=== PATIENT | female | born 1975 | race Caucasian/White ===

== ENCOUNTER 2017-03-29 05:24 | Day surgery (SDC) | payer BC ==
[2017-03-23 11:19] VITALS: BMI 20.1
[2017-03-29] MEDS ORDERED: ONDANSETRON 4 MG/2 ML VIAL ONE (10:42)
[2017-03-29] MEDS ORDERED: ceFAZolin SODIUM 1 GM VIAL ONE (10:42)
[2017-03-29] MEDS ORDERED: LIDOCAINE HCL/PF 2% SDV 5ML VIAL ONE (10:42)
[2017-03-29] MEDS ORDERED: KETOROLAC TROMETHAMINE 30 MG/1 ML VIAL ONE (10:42)
[2017-03-29] MEDS ORDERED: DEXAMETHASONE SOD PHOSPHATE 4 MG/1 ML VIAL ONE (10:42)
[2017-03-29] MEDS ORDERED: MIDAZOLAM HCL 2 MG/2 ML SINGLE DOSE VIAL ONE (10:43)
--- NOTE | 2017-03-29 11:42 | HP ---
History & Physical Update - History History: No Change - Physical Physical: No Change - Assessment Assessment: No Change - Plan Plan: No Change (Consented for Hysteroscopy, Myomectomy, possible polypectomy, Endometrial ablation)
[2017-03-29] MEDS ORDERED: ceFAZolin SODIUM 1 GM VIAL IVPB ONE (13:33)
[2017-03-29] MEDS ORDERED: oxyCODONE HCL 5 MG TABLET PO PRN ×3 (14:56→15:23)
[2017-03-29] MEDS ORDERED: ONDANSETRON 4 MG/2 ML VIAL IVPUSH PRN (14:56)
[2017-03-29] MEDS ORDERED: LACTATED RINGERS SOLUTION 1,000 ML IV SCH (15:00)
[2017-03-29] MEDS ORDERED: ONDANSETRON 4 MG/2 ML VIAL IVPB PRN (15:23)
[2017-03-29] MEDS ORDERED: IBUPROFEN 600 MG TABLET (FP) PO PRN (15:23)
[2017-03-29] MEDS ORDERED: IBUPROFEN 800 MG/8 ML IJ IVPB PRN (15:23)
--- NOTE | 2017-03-29 15:23 | OP ---
Operative Note - Note: Operative Date: 03/29/17 Pre-Operative Diagnosis: 42 yo P1 with menorhagia, likely submucosal fibroid on US Operation: Hysteroscopy, Myomectomy, Polypectomy, Endometrial ablation Findings: 1. 7cm retroverted uterus with likely fundal fibroid 2. 2cm fundal, submucosal fibroid 3. Low uterine segment polyp Post-Operative Diagnosis: Same as Pre-op Surgeon: Ellen Falk Anesthesiologist/STEAM FITTER: Po Hong Anesthesia: MAC Specimens Removed: 1. Fibroid. 2. Polyp. 3. Endometrial curettings Estimated Blood Loss (mls): 0 Instrument used (Debridements only): 1. TruClear System 5mm with Ultra mini resecting device; 2.HTA Genesys Drains & Tubes with Location: Fluid defficit - 640cc Drains, Volume Out (mls): 100 Fluid Volume Replaced (mls): 1,000 Operative Report Dictated: Yes
[2017-03-29] MEDS ORDERED: ELECTROLYTE-148 SOLN 1,000 ML IV SCH (15:30)
[2017-03-29 16:25] VITALS: TEMP 98.2
[2017-03-29 16:29] VITALS: BP 124/80; PULSE 64
--- NOTE | 2017-03-31 08:19 | OP ---
DATE OF OPERATION: 03/29/2017 PREOPERATIVE DIAGNOSIS: A 42-year-old para 1 with menorrhagia, likely submucosal fibroid on ultrasound. POSTOPERATIVE DIAGNOSIS: A 42-year-old para 1 with menorrhagia and submucosal fibroid and low uterine segment polyp. OPERATION: Hysteroscopy, myomectomy, polypectomy, endometrial ablation. FINDINGS: A 7-cm retroverted uterus with likely fundal subserosal fibroid, 2-cm fundal submucosal fibroid, low uterine segment polyp. SURGEON: Ellen Falk MD ANESTHESIOLOGIST: Po Hong CRNA ANESTHESIA: MAC. SPECIMENS REMOVED: Fibroid, polyp, endometrial curettings. DESCRIPTION OF THE OPERATIVE PROCEDURE: After assuring informed consent and explaining all risks, benefits, and alternatives to the patient, patient was brought to operating room where she was placed in dorsal lithotomy position. Perineum was prepped and draped in sterile fashion. After the Truclear hysteroscope was assembled and primed, the Melgar speculum was placed in the vagina, and anterior cervical lip was articulated with single-tooth tenaculum. The cervix was dilated up to gauge 17 to accommodate 5-mm hysteroscope. Hysteroscope was introduced and intrauterine contents were surveyed. Bilateral ostia were visualized, and midline stage 1 submucosal fibroid approximately 2 cm in size was identified and resected using the ultra mini resectoscope that was introduced through the 5-mm hysteroscope. The fibroid was level with endometrium. Subsequently, ultra mini was also used to resect the lower uterine segment polyp. The Truclear hysteroscope was removed and Storz hysteroscope with Genesys HTA ablation device was introduced into the uterus. The excellent cervical seal was assured and 10-minute cycle was fully completed, with good visualization of intrauterine contents. The darkening of endometrial tissue was noted. Cooling cycle completed and Genesys system was removed from the uterus, and Truclear hysteroscope was reintroduced. The floating debris with some polypoid tissue was removed, and uterus was cleared of excess endometrial tissue. Subsequently all instruments were removed from the vagina. Excellent hemostasis was noted. Instrument and sponge count was correct x2. Fluid deficit noted was to be 640 mL. Patient put out 100 mL of urine and received 1000 mL of IV fluids. She was stable and was brought to the recovery room in stable condition. Bernice [id number]
--- NOTE | 2017-03-31 13:01 | PATH ---
Surgical Pathology Report Patient Name: JUAN FRANCISCO MELTON [facility]. Rec. #: [id number] /Age/Gender: 1975 (Age: 42) / F Account: [id number] Location: [facility] SURGICAL Taken: 03/29/2017 Received: 03/30/2017 Reported: 03/31/2017 Physicians: Ellen Falk M.D. Specimen(s) Received FIBROID, POLYP AND ENDOMETRIAL CURETTINGS Clinical History Vaginal bleeding, submucosal leiomyoma of uterus Final Diagnosis FIBROID, POLYP, AND ENDOMETRIAL CURETTAGE: FRAGMENTS OF PREDOMINANTLY INACTIVE AND FOCALLY SECRETORY TYPE ENDOMETRIUM WITH AREAS SUGGESTIVE OF ENDOMETRIAL POLYP. FRAGMENTS OF BENIGN SMOOTH MUSCLE WITH OVERLYING BENIGN ENDOMETRIUM SUGGESTIVE OF SUBMUCOSAL LEIOMYOMA. Electronically Signed Ace Torres M.D. Gross Description Received in formalin, labeled "fibroid, polyp and endometrial curettage" and the 2.5 x 1.5 x 0.4 cm in aggregate dimensions multiple fragments of fletcher tissue. Submitted entirely in one cassette. AF/03/30/2017 final/03/30/2017
== END 2017-03-29 17:33 | disposition home or self-care (01) ==
LOC: JASU-SURG 05:24
PROVIDERS: ATTEND Obstetrics & Gynecology
PROC: 0U5B8ZZ Destruction of Endometrium, Via Natural or Artificial Opening Endoscopic (ICD-10-PCS; 2017-03-29)
PROC: 0UB98ZX Excision of Uterus, Via Natural or Artificial Opening Endoscopic, Diagnostic (ICD-10-PCS; principal; 2017-03-29 10:00)
PROC: 0UDB8ZX Extraction of Endometrium, Via Natural or Artificial Opening Endoscopic, Diagnostic (ICD-10-PCS; 2017-03-29 10:00)
DX: N92.0 Excessive and frequent menstruation with regular cycle (principal); D25.0 Submucous leiomyoma of uterus; N84.0 Polyp of corpus uteri
CPT/HCPCS: 84703; 88305-TC; 94760